=== PATIENT | female | born 1970 | race Caucasian/White ===

== ENCOUNTER 2020-11-04 18:43 | Observation (INO) ==
[2020-11-04] MEDS ORDERED: Isovue-370 500 ML BOTTLE IVP ONE (19:20)
[2020-11-04 19:35] LABS: Hemoglobin 13.5 g/dL (11.5-15.4); Mean Corpuscular HGB Conc 32.1 g/dL (31.6-35.5); Mean Corpuscular Hemoglobin 25.9 pg (28.0-33.3); Mean Corpuscular Volume 80.5 fL (83.0-100.0); Mean Platelet Volume 9.7 fL (9.4-12.4); Platelet Count 351 K/mcL (140-400); Red Blood Count 5.22 M/mcL (3.82-4.97); White Blood Count 12.9 K/mcL (4.3-11.1)
[2020-11-04 19:46] LABS: Prothrombin Time 11.8 Seconds (9.4-12.1)
[2020-11-04 19:48] LABS: Activated Partial Thrombo Time 33.8 Seconds (26.0-36.0)
[2020-11-04 19:53] LABS: BUN/Creatinine Ratio 19 (6-26); Blood Urea Nitrogen 10 mg/dL (6-20); Calcium 9.2 mg/dL (8.6-10.3); Carbon Dioxide 28 mEq/L (23-29); Chloride 98 mEq/L (98-107); Glucose 326 mg/dL (70-105); Osmolality,Calculated 290 (280-300); Potassium 3.6 mEq/L (3.5-5.1); Sodium 134 mEq/L (136-145); eGFR For African Americans > 60 (> 60); eGFR For Non-African Americans > 60 (> 60)
[2020-11-04 19:55] LABS: Troponin I < 0.03 ng/mL (< 0.04)
[2020-11-04] MEDS ORDERED: Ondansetron 4 MG/2 ML VIAL IVP ONE (20:17)
[2020-11-04] MEDS ORDERED: Acetaminophen 325 MG TABLET PO ONE (20:19)
[2020-11-04] MEDS ORDERED: *HR* Labetalol 20 MG/4 ML SYRINGE IVP ONE ×2 (21:08→21:55)
[2020-11-04] MEDS ORDERED: Ondansetron 4 MG/2 ML VIAL IVP PRN (21:52)
[2020-11-04] MEDS ORDERED: Perflutren Lipid Microsphere 1.3 ML in 0.9 % Sodium Chloride 8.7 ML IVP PRN (21:52)
[2020-11-04] MEDS ORDERED: Acetaminophen 325 MG TABLET PO PRN (21:52)
[2020-11-04] MEDS ORDERED: Naloxone 0.4 MG/ML INJ IVP PRN (21:52)
[2020-11-04] MEDS ORDERED: *HR* Metoprolol 5 MG/5 ML VIAL IVP PRN (22:04)
[2020-11-04] MEDS: Aspirin Enteric Coated 81 MG Tablet PO SCH (22:13)
[2020-11-04] MEDS ORDERED: Dextrose Gel 15 GM/37.5 ML TUBE PO PRN ×2 (22:20)
[2020-11-04] MEDS ORDERED: D5% in Water 1,000 ML IVC PRN (22:20)
[2020-11-04] MEDS ORDERED: *HR* Dextrose 50 % in Water (Vial) 50 ML VIAL IVP PRN (22:20)
[2020-11-04] MEDS ORDERED: Insulin LISPRO 300 UNITS/3 ML VIAL SUBQ SCH (22:30)
[2020-11-04] MEDS ORDERED: Ketorolac 30 MG/ML VIAL IVP ONE (22:39)
[2020-11-04] MEDS ORDERED: Prochlorperazine 10 MG/2 ML VIAL IVP PRN (22:39)
[2020-11-04 23:12] LABS: Amphetamine Screen,Urine Negative ng/mL (Cutoff=1000); Barbiturate Screen,Urine Negative ng/mL (Cutoff=200); Benzodiazepines Screen,Urine Negative ng/mL (Cutoff=200); Cannabinoid Screen,Urine Negative ng/mL (Cutoff = 50); Cocaine Screen,Urine Negative ng/mL (Cutoff= 300); Opiate Screen,Urine Negative ng/mL (Cutoff=300); Phencyclidine Screen,Urine Negative ng/mL (Cutoff=25)
[2020-11-05 01:25] LABS: Basophils % 0.2 %; Hematocrit 40.9 % (35.3-44.9); Hemoglobin 13.2 g/dL (11.5-15.4); Immature Granulocytes % 0.5 % (0-4); Lymphocytes # 1.2 K/mcL (0.6-4.6); Lymphocytes % 7.2 %; Mean Corpuscular HGB Conc 32.3 g/dL (31.6-35.5); Mean Corpuscular Hemoglobin 25.8 pg (28.0-33.3); Mean Platelet Volume 10.2 fL (9.4-12.4); Monocytes # 0.4 K/mcL (0.0-1.3); Monocytes % 2.1 %; Neutrophils # 14.8 K/mcL (1.6-8.9); Platelet Count 379 K/mcL (140-400); Red Blood Count 5.11 M/mcL (3.82-4.97); White Blood Count 16.4 K/mcL (4.3-11.1)
[2020-11-05 01:34] LABS: Estimated Average Glucose 263 mg/dl; Hemoglobin A1C 10.8 %
[2020-11-05 01:49] LABS: BUN/Creatinine Ratio 15 (6-26); Blood Urea Nitrogen 10 mg/dL (6-20); Calcium 8.9 mg/dL (8.6-10.3); Carbon Dioxide 22 mEq/L (23-29); Chloride 97 mEq/L (98-107); Cholesterol 139 mg/dL (< 200); Glucose 348 mg/dL (70-105); HDL Cholesterol 46 mg/dL (40-59); LDL Cholesterol,Calculated 77 mg/dL (< 100); Osmolality,Calculated 289 (280-300); Potassium 3.6 mEq/L (3.5-5.1); Sodium 133 mEq/L (136-145); Triglycerides 78 mg/dL (< 150); eGFR For African Americans > 60 (> 60); eGFR For Non-African Americans > 60 (> 60)
[2020-11-05] MEDS ORDERED: *HR* Heparin 5,000 UNIT/ML VIAL SQ SCH (06:00)
[2020-11-05] MEDS ORDERED: Insulin LISPRO 300 UNITS/3 ML VIAL SUBQ SCH (07:30)
[2020-11-05] MEDS: Aspirin Enteric Coated 81 MG Tablet PO SCH (07:45)
[2020-11-05 11:48] VITALS: BP 167/96
== END 2020-11-05 15:13 | disposition home or self-care (01) ==
LOC: 3BNU 18:43 → EMEROOARM 18:43 → 3BNU 22:57
PROVIDERS: ADMIT Family Medicine; ATTEND Family Medicine

== ENCOUNTER 2021-04-16 21:18 | Inpatient (IN) ==
[2021-04-16] MEDS ORDERED: 0.9 % Sodium Chloride 1,000 ML IVC ONE (22:46)
[2021-04-16 23:06] LABS: Basophils # 0.1 K/mcL (0.0-0.2); Basophils % 0.3 %; Eosinophils # 0.1 K/mcL (0.0-0.6); Eosinophils % 0.5 %; Hematocrit 45.7 % (35.3-44.9); Hemoglobin 14.4 g/dL (11.5-15.4); Immature Granulocytes % 0.5 % (0-4); Lymphocytes # 1.9 K/mcL (0.6-4.6); Lymphocytes % 10.5 %; Mean Corpuscular HGB Conc 31.5 g/dL (31.6-35.5); Mean Corpuscular Hemoglobin 25.8 pg (28.0-33.3); Mean Corpuscular Volume 81.9 fL (83.0-100.0); Monocytes # 1.1 K/mcL (0.0-1.3); Neutrophils # 15.2 K/mcL (1.6-8.9); Platelet Count 403 K/mcL (140-400); Red Blood Count 5.58 M/mcL (3.82-4.97); Red Cell Distribution Width 14.4 % (11.5-14.5); Segmented Neutrophils % 82.2 %; White Blood Count 18.4 K/mcL (4.3-11.1)
[2021-04-16 23:28] LABS: BUN/Creatinine Ratio 25 (6-26); Blood Urea Nitrogen 14 mg/dL (6-20); Calcium 9.4 mg/dL (8.6-10.3); Carbon Dioxide 27 mEq/L (23-29); Chloride 99 mEq/L (98-107); Glucose 304 mg/dL (70-105); Osmolality,Calculated 296 (280-300); Potassium 3.6 mEq/L (3.5-5.1); Sodium 137 mEq/L (136-145); Troponin I < 0.03 ng/mL (< 0.04); eGFR For African Americans > 60 (> 60); eGFR For Non-African Americans > 60 (> 60)
[2021-04-17] MEDS ORDERED: Isovue-370 500 ML BOTTLE IVP ONE ×2 (00:08→00:16)
[2021-04-17 00:35] LABS: Adenovirus Not Detected (Not Detect); Bordetella Pertussis Not Detected (Not Detect); Chlamydophila pneumoniae Not Detected (Not Detect); Coronavirus 229E Not Detected (Not Detect); Coronavirus HKU1 Not Detected (Not Detect); Coronavirus NL63 Not Detected (Not Detect); Coronavirus OC43 Not Detected (Not Detect); Human Metapneumovirus Not Detected (Not Detect); Human Rhinovirus/Enterovirus Not Detected (Not Detect); Influenza A Subtype 2009 H1 Not Detected (Not Detect); Influenza B Not Detected (Not Detect); Mycoplasma pneumoniae Not Detected (Not Detect); Parainfluenza Virus 1 Not Detected (Not Detect); Parainfluenza Virus 2 Not Detected (Not Detect); Parainfluenza Virus 3 Not Detected (Not Detect); Parainfluenza Virus 4 Not Detected (Not Detect); Respiratory Syncytial Virus Not Detected (Not Detect); SARS-CoV-2 Not Detected (Not Detect)
[2021-04-17] MEDS ORDERED: Vancomycin 2,000 MG/520 ML IV.SOLN IVPB ONE (03:47)
[2021-04-17] MEDS ORDERED: Piperacillin/Tazobactam 3.375 GM in 0.9 % Sodium Chloride Mini Bag 100 ML IVPB ONE (03:48)
[2021-04-17] MEDS ORDERED: Acetaminophen 325 MG TABLET PO PRN (04:54)
[2021-04-17] MEDS ORDERED: Naloxone 0.4 MG/ML INJ IVP PRN (04:54)
[2021-04-17] MEDS ORDERED: Ondansetron 4 MG/2 ML VIAL IVP PRN (04:54)
[2021-04-17] MEDS ORDERED: Dextrose Gel 15 GM/37.5 ML TUBE PO PRN ×2 (04:55)
[2021-04-17] MEDS ORDERED: D5% in Water 1,000 ML IVC PRN (04:55)
[2021-04-17] MEDS ORDERED: *HR* Dextrose 50 % in Water (Vial) 50 ML VIAL IVP PRN (04:55)
[2021-04-17 05:34] LABS: Basophils # 0.1 K/mcL (0.0-0.2); Basophils % 0.5 %; Eosinophils # 0.1 K/mcL (0.0-0.6); Eosinophils % 0.3 %; Hematocrit 44.6 % (35.3-44.9); Hemoglobin 14.1 g/dL (11.5-15.4); Immature Granulocytes % 0.5 % (0-4); Lymphocytes # 2.1 K/mcL (0.6-4.6); Lymphocytes % 12.5 %; Mean Corpuscular HGB Conc 31.6 g/dL (31.6-35.5); Mean Corpuscular Hemoglobin 25.9 pg (28.0-33.3); Mean Corpuscular Volume 81.8 fL (83.0-100.0); Mean Platelet Volume 9.6 fL (9.4-12.4); Monocytes # 0.9 K/mcL (0.0-1.3); Monocytes % 5.3 %; Neutrophils # 13.8 K/mcL (1.6-8.9); Platelet Count 401 K/mcL (140-400); Red Blood Count 5.45 M/mcL (3.82-4.97); Red Cell Distribution Width 14.6 % (11.5-14.5); Segmented Neutrophils % 80.9 %
[2021-04-17 05:40] LABS: Estimated Average Glucose 272 mg/dl; Hemoglobin A1C 11.1 %
[2021-04-17] MEDS: 0.9 % Sodium Chloride 1,000 ML IVC SCH ×2 (05:41→16:11)
[2021-04-17 05:44] LABS: INR 1.2; Prothrombin Time 13.8 Seconds (9.4-12.1)
[2021-04-17] MEDS: Insulin LISPRO 300 UNITS/3 ML VIAL SUBQ SCH ×3 (07:29→16:53)
[2021-04-17] MEDS ORDERED: *HR* Midazolam HCl 2 MG/2 ML VIAL ONE (08:19)
[2021-04-17] MEDS ORDERED: Lidocaine -MPF 4% 5 ML AMPUL ONE (08:21)
[2021-04-17] MEDS ORDERED: Lidocaine/EPI 1:100k 1% 50 ML VIAL ONE (08:28)
[2021-04-17] MEDS ORDERED: Lidocaine Jelly 6ml 1 APPL/6 ML JEL.PF.APP ONE ×2 (08:32→09:07)
[2021-04-17] MEDS ORDERED: Racepinephrine Neb 0.5 ML VIAL IH ONE (08:34)
[2021-04-17] MEDS ORDERED: Lidocaine TOPICAL Soln 50 ML BOTTLE ONE (08:39)
[2021-04-17] MEDS ORDERED: Lidocaine 5% OINT 35 APPL/35.44 GM TUBE TP ONE (09:10)
[2021-04-17] MEDS ORDERED: Artificial Tears SOLN 15 ML BOTTLE BOTH EYES PRN (09:55)
[2021-04-17] MEDS ORDERED: *HR* FentaNYL (PF) 100 MCG/2 ML VIAL ONE (10:06)
[2021-04-17] MEDS ORDERED: Lidocaine HCL 4 ML Topical Solution (Laryng-O-Jet Kit Sterile Pak) TP ONE (10:06)
[2021-04-17] MEDS ORDERED: *HR* Propofol 200 MG/20 ML VIAL IVP ONE (10:06)
[2021-04-17] MEDS ORDERED: Ipratropium/Albuterol Neb 3 ML IH PRN (10:16)
[2021-04-17] MEDS: FentaNYL (PF) 1,000 MCG/100 ML IV.SOLN IVC SCH ×3 (10:45→22:29)
[2021-04-17 11:29] LABS: ABG Base Excess 3 mEq/L (-2 to 3); ABG HCO3 28 mEq/L (21-27); ABG Oxygen Saturation 95 % (95-98); ABG PCO2 45 mmHg (35-45); ABG PO2 74 mmHg (85-104); ABG TCO2 30 mEq/L (20-26); Blood Gas VT 460 cc
[2021-04-17] MEDS ORDERED: *HR* Labetalol 20 MG/4 ML SYRINGE IVP PRN (11:55)
[2021-04-17] MEDS ORDERED: cefTRIAXone 1,000 MG in 0.9 % Sodium Chloride Mini Bag 100 ML IVPB SCH (12:00)
[2021-04-17] MEDS: Pantoprazole 40 MG VIAL IVP SCH (12:41)
[2021-04-17] MEDS: cefTRIAXone 2,000 MG in Water for inj. (sterile) 20 ML IVP SCH (12:42)
[2021-04-17] MEDS: Artificial Tears SOLN 15 ML BOTTLE BOTH EYES SCH ×4 (12:42→23:48)
[2021-04-17] MEDS: Vancomycin 1,250 MG/262.5 ML IV.SOLN IVPB SCH (16:51)
[2021-04-17] MEDS ORDERED: Insulin LISPRO 300 UNITS/3 ML VIAL SUBQ SCH (21:00)
[2021-04-17] MEDS: Chlorhexidine Rinse 15 ML MOUTHWASH MM SCH (22:30)
[2021-04-18] MEDS: Vancomycin 1,250 MG/262.5 ML IV.SOLN IVPB SCH (03:29)
[2021-04-18 03:55] LABS: Basophils % 0.1 %; Hematocrit 40.1 % (35.3-44.9); Hemoglobin 12.5 g/dL (11.5-15.4); Immature Granulocytes % 0.4 % (0-4); Lymphocytes # 1.1 K/mcL (0.6-4.6); Lymphocytes % 7.1 %; Mean Corpuscular HGB Conc 31.2 g/dL (31.6-35.5); Mean Corpuscular Hemoglobin 25.8 pg (28.0-33.3); Mean Corpuscular Volume 82.7 fL (83.0-100.0); Mean Platelet Volume 9.9 fL (9.4-12.4); Monocytes # 0.6 K/mcL (0.0-1.3); Monocytes % 3.5 %; Platelet Count 353 K/mcL (140-400); Red Blood Count 4.85 M/mcL (3.82-4.97); Red Cell Distribution Width 14.6 % (11.5-14.5); Segmented Neutrophils % 88.9 %; White Blood Count 15.7 K/mcL (4.3-11.1)
[2021-04-18 03:57] LABS: VBG Ionized Calcium 1.18 mmol/L (1.15-1.35)
[2021-04-18 04:11] LABS: Magnesium 1.8 mg/dL (1.6-2.6); Phosphorous 3.3 mg/dL (2.7-4.5)
[2021-04-18 04:11] LABS: BUN/Creatinine Ratio 33 (6-26); Blood Urea Nitrogen 18 mg/dL (6-20); Calcium 8.8 mg/dL (8.6-10.3); Carbon Dioxide 23 mEq/L (23-29); Chloride 105 mEq/L (98-107); Glucose 318 mg/dL (70-105); Osmolality,Calculated 298 (280-300); Potassium 3.6 mEq/L (3.5-5.1); Sodium 137 mEq/L (136-145); eGFR For African Americans > 60 (> 60); eGFR For Non-African Americans > 60 (> 60)
[2021-04-18 04:14] LABS: ABG Base Excess -1 mEq/L (-2 to 3); ABG HCO3 25 mEq/L (21-27); ABG Oxygen Saturation 93 % (95-98); ABG PCO2 47 mmHg (35-45); ABG PH 7.34 pH Units (7.32-7.45); ABG PO2 73 mmHg (85-104); ABG TCO2 27 mEq/L (20-26); Blood Gas VT 450 cc
[2021-04-18] MEDS: FentaNYL (PF) 1,000 MCG/100 ML IV.SOLN IVC SCH ×2 (05:23→13:38)
[2021-04-18] MEDS: Artificial Tears SOLN 15 ML BOTTLE BOTH EYES SCH ×6 (05:24→23:28)
[2021-04-18] MEDS ORDERED: D5% in Water 1,000 ML IVC PRN (05:36)
[2021-04-18] MEDS: Insulin LISPRO 300 UNITS/3 ML VIAL SUBQ SCH ×4 (06:15→23:29)
[2021-04-18] MEDS: Chlorhexidine Rinse 15 ML MOUTHWASH MM SCH ×2 (08:27→19:27)
[2021-04-18] MEDS: Pantoprazole 40 MG VIAL IVP SCH (08:27)
[2021-04-18] MEDS ORDERED: Famotidine 20 MG/2 ML VIAL IVP ONE (10:39)
[2021-04-18] MEDS: cefTRIAXone 2,000 MG in Water for inj. (sterile) 20 ML IVP SCH (11:06)
[2021-04-18] MEDS: Insulin DETEMIR 100 UNIT/ML X5UNITS SUBQ SCH ×2 (13:38→19:27)
[2021-04-18] MEDS ORDERED: *HR* Labetalol 20 MG/4 ML SYRINGE IVP PRN (15:38)
[2021-04-18] MEDS: Vancomycin 1,750 MG/517.5 ML IV.SOLN IVPB SCH (16:50)
[2021-04-18] MEDS: *HR* Heparin 5,000 UNIT/ML VIAL SQ SCH (17:49)
[2021-04-18] MEDS: Famotidine 20 MG/2 ML VIAL IVP SCH (17:50)
[2021-04-19] MEDS: Artificial Tears SOLN 15 ML BOTTLE BOTH EYES SCH ×6 (03:51→23:47)
[2021-04-19 04:08] LABS: ABG Base Excess 3 mEq/L (-2 to 3); ABG HCO3 28 mEq/L (21-27); ABG Oxygen Saturation 97 % (95-98); ABG PCO2 44 mmHg (35-45); ABG PH 7.41 pH Units (7.32-7.45); ABG PO2 88 mmHg (85-104); ABG TCO2 30 mEq/L (20-26); Blood Gas VT 450 cc
[2021-04-19] MEDS: FentaNYL (PF) 1,000 MCG/100 ML IV.SOLN IVC SCH ×3 (04:15→21:06)
[2021-04-19 04:25] LABS: Basophils % 0.1 %; Hematocrit 37.6 % (35.3-44.9); Hemoglobin 12.2 g/dL (11.5-15.4); Immature Granulocytes % 0.5 % (0-4); Lymphocytes # 1.1 K/mcL (0.6-4.6); Lymphocytes % 7.3 %; Mean Corpuscular HGB Conc 32.4 g/dL (31.6-35.5); Mean Corpuscular Hemoglobin 26.7 pg (28.0-33.3); Mean Corpuscular Volume 82.3 fL (83.0-100.0); Mean Platelet Volume 10.1 fL (9.4-12.4); Monocytes # 0.9 K/mcL (0.0-1.3); Monocytes % 5.8 %; Neutrophils # 12.8 K/mcL (1.6-8.9); Platelet Count 313 K/mcL (140-400); Red Blood Count 4.57 M/mcL (3.82-4.97); Red Cell Distribution Width 14.6 % (11.5-14.5); Segmented Neutrophils % 86.3 %; White Blood Count 14.9 K/mcL (4.3-11.1)
[2021-04-19 04:27] LABS: VBG Ionized Calcium 1.19 mmol/L (1.15-1.35)
[2021-04-19 04:43] LABS: BUN/Creatinine Ratio 35 (6-26); Blood Urea Nitrogen 21 mg/dL (6-20); Calcium 8.8 mg/dL (8.6-10.3); Carbon Dioxide 27 mEq/L (23-29); Chloride 104 mEq/L (98-107); Glucose 283 mg/dL (70-105); Magnesium 1.8 mg/dL (1.6-2.6); Osmolality,Calculated 299 (280-300); Phosphorous 3.1 mg/dL (2.7-4.5); Potassium 3.9 mEq/L (3.5-5.1); Sodium 138 mEq/L (136-145); eGFR For African Americans > 60 (> 60); eGFR For Non-African Americans > 60 (> 60)
[2021-04-19] MEDS: Vancomycin 1,750 MG/517.5 ML IV.SOLN IVPB SCH ×2 (05:20→17:12)
[2021-04-19] MEDS: *HR* Heparin 5,000 UNIT/ML VIAL SQ SCH ×2 (05:21→17:12)
[2021-04-19] MEDS: Famotidine 20 MG/2 ML VIAL IVP SCH ×2 (05:22→17:12)
[2021-04-19] MEDS: Insulin LISPRO 300 UNITS/3 ML VIAL SUBQ SCH ×4 (05:39→23:49)
[2021-04-19] MEDS ORDERED: *HR* Labetalol 20 MG/4 ML SYRINGE IVP ONE ×2 (07:34→09:11)
[2021-04-19] MEDS: Insulin DETEMIR 100 UNIT/ML X5UNITS SUBQ SCH ×2 (07:44→19:46)
[2021-04-19] MEDS: Chlorhexidine Rinse 15 ML MOUTHWASH MM SCH ×2 (07:44→19:46)
[2021-04-19] MEDS ORDERED: *HR* Labetalol 20 MG/4 ML SYRINGE IVP PRN (09:12)
[2021-04-19] MEDS ORDERED: *HR* Succinylcholine 200 MG/10 ML VIAL IVP ONE (10:08)
[2021-04-19] MEDS ORDERED: Lidocaine -MPF 2% 2 ML VIAL ONE (10:25)
[2021-04-19] MEDS ORDERED: *HR* Midazolam HCl 2 MG/2 ML VIAL ONE (10:26)
[2021-04-19] MEDS ORDERED: *HR* FentaNYL (PF) 100 MCG/2 ML VIAL ONE (10:26)
[2021-04-19] MEDS ORDERED: *HR* Propofol 200 MG/20 ML VIAL IVP ONE ×3 (10:26→11:24)
[2021-04-19] MEDS ORDERED: Lidocaine Jelly 6ml 1 APPL/6 ML JEL.PF.APP ONE ×2 (10:33→10:59)
[2021-04-19] MEDS ORDERED: *HR* Rocuronium Bromide 50 MG/5 ML VIAL ONE (10:36)
[2021-04-19] MEDS ORDERED: *HR* EPINEPHrine 30 MG/30 ML MDV ONE (10:59)
[2021-04-19] MEDS ORDERED: Lidocaine/EPI 1:200k 1% PF 10 ML VIAL ONE (10:59)
[2021-04-19] MEDS ORDERED: Ondansetron 4 MG/2 ML VIAL ONE (11:51)
[2021-04-19] MEDS: cefTRIAXone 2,000 MG in Water for inj. (sterile) 20 ML IVP SCH (11:55)
[2021-04-19 14:02] LABS: Bilirubin,Urine Negative (Negative); Blood,Urine Small (Negative); Clarity,Urine Clear (Clear); Color,Urine Light-Yellow (Yellow); Glucose,Urine (UA) >=1000 mg/dL (Normal); Ketones,Urine 40 mg/dL (Negative); Leukocyte Esterase,Urine Negative (Negative); Mucus,Urine Few per lpf (None-Few); Nitrite,Urine Negative (Negative); Protein,Urine Trace mg/dL (Neg-Trace); Specific Gravity,Urine > 1.030 (1.010-1.025); Squamous Epithelial Cell,Urine Few per hpf (None-Few); Urobilinogen,Urine Normal (Normal); WBC,Urine 0-3 per hpf (0-3)
[2021-04-20] MEDS: Artificial Tears SOLN 15 ML BOTTLE BOTH EYES SCH ×2 (03:09→08:01)
[2021-04-20 03:53] LABS: Basophils % 0.2 %; Hematocrit 38.4 % (35.3-44.9); Hemoglobin 11.6 g/dL (11.5-15.4); Immature Granulocytes % 0.6 % (0-4); Lymphocytes # 0.9 K/mcL (0.6-4.6); Lymphocytes % 7.2 %; Mean Corpuscular HGB Conc 30.2 g/dL (31.6-35.5); Mean Corpuscular Hemoglobin 25.4 pg (28.0-33.3); Mean Platelet Volume 10.1 fL (9.4-12.4); Monocytes # 0.8 K/mcL (0.0-1.3); Monocytes % 6.7 %; Neutrophils # 10.6 K/mcL (1.6-8.9); Platelet Count 326 K/mcL (140-400); Red Blood Count 4.57 M/mcL (3.82-4.97); Red Cell Distribution Width 14.8 % (11.5-14.5); Segmented Neutrophils % 85.3 %; White Blood Count 12.4 K/mcL (4.3-11.1)
[2021-04-20 04:02] LABS: Alanine Aminotransferase 9 Units/L (7-52); Albumin 3.1 g/dL (3.5-5.7); Alkaline Phosphatase 72 Units/L (34-104); Aspartate Amino Transferase 12 Units/L (13-39); BUN/Creatinine Ratio 35 (6-26); Bilirubin,Total 0.3 mg/dL (0.3-1.0); Blood Urea Nitrogen 19 mg/dL (6-20); Calcium 8.5 mg/dL (8.6-10.3); Carbon Dioxide 26 mEq/L (23-29); Chloride 104 mEq/L (98-107); Glucose 268 mg/dL (70-105); Magnesium 1.9 mg/dL (1.6-2.6); Osmolality,Calculated 298 (280-300); Phosphorous 2.8 mg/dL (2.7-4.5); Potassium 3.6 mEq/L (3.5-5.1); Sodium 138 mEq/L (136-145); Total Protein 6.1 g/dL (6.4-8.9); eGFR For African Americans > 60 (> 60); eGFR For Non-African Americans > 60 (> 60)
[2021-04-20] MEDS: FentaNYL (PF) 1,000 MCG/100 ML IV.SOLN IVC SCH (04:04)
[2021-04-20 04:22] LABS: ABG Base Excess 3 mEq/L (-2 to 3); ABG HCO3 29 mEq/L (21-27); ABG Oxygen Saturation 98 % (95-98); ABG PCO2 46 mmHg (35-45); ABG PO2 97 mmHg (85-104); ABG TCO2 30 mEq/L (20-26); Blood Gas Modality AF; Blood Gas VT 450 cc
[2021-04-20] MEDS: Vancomycin 1,750 MG/517.5 ML IV.SOLN IVPB SCH (05:17)
[2021-04-20] MEDS: Famotidine 20 MG/2 ML VIAL IVP SCH (05:18)
[2021-04-20] MEDS: *HR* Heparin 5,000 UNIT/ML VIAL SQ SCH (05:18)
[2021-04-20] MEDS: Insulin LISPRO 300 UNITS/3 ML VIAL SUBQ SCH (05:18)
[2021-04-20 07:39] VITALS: O2SAT 96
[2021-04-20 07:43] VITALS: TEMP 98.7
[2021-04-20] MEDS: Vancomycin 1,250 MG/262.5 ML IV.SOLN IVPB SCH (07:57)
[2021-04-20] MEDS: Insulin DETEMIR 100 UNIT/ML X5UNITS SUBQ SCH (08:02)
[2021-04-20] MEDS: Chlorhexidine Rinse 15 ML MOUTHWASH MM SCH (08:02)
[2021-04-20 10:54] VITALS: BP 144/70; PULSE 82
[2021-04-20] MEDS ORDERED: Insulin LISPRO 300 UNITS/3 ML VIAL SUBQ SCH (12:00)
[2021-04-21 01:28] LABS: B. Pertussis AB IgG Blot PT100 NEGATIVE; B. Pertussis Ab IgG Blot FHA POSITIVE
[2021-04-22 10:12] LABS: B Pertussis Antibody IgA 1.3 IV (<=1.1); B Pertussis Antibody IgG 3.81 IV (<=1.04); B Pertussis Antibody IgM 4.9 IV (<=1.1)
[2021-04-23 06:50] LABS: Serine Protease-3 Antibody 1 AU/mL (0-19)
[2021-04-25 07:04] LABS: B Pertussis AB IgM Blot Interp NEGATIVE (Negative)
== END 2021-04-20 11:02 | disposition short-term general hospital (02) | DRG 871 ==
LOC: EMEROOARM 21:18 → 2NNU 21:18 → SUATTDRO 04-17 04:34 → 2NNU 04-17 05:00 → ICNU 04-17 09:28 → SUATTDRO 04-17 22:42
PROVIDERS: ADMIT Internal Medicine; ATTEND Pediatrics